=== PATIENT | female | born 1980 | race Caucasian/White ===

== ENCOUNTER → 2017-05-10 15:23 | Outpatient (CLI) | payer MEDICAID, SELFPAY ==
[2017-05-10 17:03] LABS: Free T3 2.9 pg/mL (2.18-3.98); Thyroid Stim Hormone (TSH) 0.87 uIU/mL (0.358-3.74)
[2017-05-13 09:24] LABS: ANTINUCLEAR ANTIBODIES DIRECT Negative (Negative)
[2017-05-17 14:08] LABS: Dilute Prothrombin Time (dPT) 42.5 sec (0.0-55.0); Dilute Russell Viper Venom 39.4 sec (0.0-47.0); PTT-LA 33.5 sec (0.0-51.9); Thrombin Time 18.8 sec (0.0-23.0); dPT Confirm Ratio 1.16 Ratio (0.00-1.40)
[2017-05-18 11:27] LABS: Interpretation Comment: (.)
[2017-05-19 14:20] LABS: HPV HC, High Risk Negative (Negative); HPV Reflexed? NOT INDICATED
== END ==
PROVIDERS: Visit Provider Obstetrics & Gynecology
DX: N96 Recurrent pregnancy loss (principal); Z12.4 Encounter for screening for malignant neoplasm of cervix; Z12.72 Encounter for screening for malignant neoplasm of vagina
CPT/HCPCS: 36415; 81241; 84439; 84443; 84481; 86038; 88175; G0145

== ENCOUNTER → 2018-08-08 | Outpatient (CLI) | payer OTHER, SELFPAY ==
[2018-08-16 09:00] LABS: HPV HC, High Risk Negative (Negative)
== END | disposition home or self-care (01) ==
LOC: LABSPEC 16:28
PROVIDERS: Visit Provider Obstetrics & Gynecology
DX: Z12.4 Encounter for screening for malignant neoplasm of cervix (principal)
CPT/HCPCS: 87624; 88175; G0145

== ENCOUNTER → 2018-09-01 10:47 | Outpatient (CLI) | payer OTHER, SELFPAY ==
[2018-09-01 13:35] LABS: hCG Titer Quant., Serum 115 mIU/mL (1-3)
== END ==
PROVIDERS: Visit Provider Obstetrics & Gynecology
DX: N91.2 Amenorrhea, unspecified (principal); Z87.59 Personal history of other complications of pregnancy, childbirth and the puerperium
CPT/HCPCS: 36415; 84702

== ENCOUNTER → 2018-09-03 10:30 | Outpatient (CLI) | payer OTHER, SELFPAY ==
[2018-09-03 11:42] LABS: hCG Titer Quant., Serum 87 mIU/mL (1-3)
== END ==
PROVIDERS: Family Provider Internal Medicine; PCP Internal Medicine; Visit Provider Obstetrics & Gynecology
DX: O20.0 Threatened abortion (principal); Z3A.00 Weeks of gestation of pregnancy not specified
CPT/HCPCS: 36415; 84702

== ENCOUNTER → 2018-09-05 | Outpatient (CLI) | payer OTHER, SELFPAY ==
[2018-09-05 13:51] LABS: Hematocrit 43.2 % (37-47); Mean Corp Hgb Conc 32.4 g/dL (32-36); Mean Corpuscular Hgb 28.5 pg (27.0-32.0); Mean Platelet Vol. 10.4 fl (6.2-12.0); Platelet Count 388 K/mm3 (150-450); RBC Distribution Width CV 14.1 % (11.6-14.6); RBC Distribution Width SD 45.1 fl (35.1-43.9); Red Blood Count 4.91 M/mm3 (4.2-5.4); White Blood Count 9.9 K/mm3 (4.4-11.0)
[2018-09-05 14:01] LABS: AST(SGOT) 13 U/L (15-37); Alanine Aminotransfer ALT/SGPT 23 U/L (13-56); Albumin, Serum 3.9 g/dL (3.2-5.0); Alkaline Phosphatase 98 U/L (45-117); Anion Gap 4 (5-15); BUN 7 mg/dL (7-18); BUN/Creat Ratio 8.7 RATIO (10-20); Calcium,Total 9.2 mg/dL (8.5-10.1); Chloride 110 mmol/L (98-107); EST Glomerular Filtration Rate 85 mL/min (>60); Est Glom Filt Rate - Afr Amer 103 mL/min (>60); Globulin 4.1 g/dL (2.2-4.2); Glucose 79 mg/dL (74-106); Potassium 3.6 mmol/L (3.5-5.1); Sodium Level 139 mmol/L (136-145)
[2018-09-05 14:02] LABS: hCG Titer Quant., Serum 69 mIU/mL (1-3)
[2018-09-07 11:29] LABS: Anti-Cardiolipin Ab, IgG, Qn < 9 GPL U/mL (0-14); Anti-Cardiolipin Ab, IgM, Qn < 9 MPL U/mL (0-12)
== END | disposition home or self-care (01) ==
PROVIDERS: Visit Provider Obstetrics & Gynecology
DX: O20.0 Threatened abortion (principal); N96 Recurrent pregnancy loss
CPT/HCPCS: 36415; 80053; 84702; 85027; 86147